=== PATIENT | female | born 1965 | race Caucasian/White ===

== ENCOUNTER → 2020-04-05 | Day surgery (SDC) | payer OTHER, MEDICARE ==
--- NOTE | 2020-04-01 13:29 | Diagnostic Imaging Report ---
EXAMINATION: CHEST 2 VIEWS INDICATION: Preop for surgery ^[id number] ^[id number] ^PRE-OP COMPARISON: None FINDINGS: TUBES and LINES: None. LUNGS: Lungs are well inflated. Lungs are clear. There is no evidence of pneumonia or pulmonary edema. PLEURA: No pleural effusion or pneumothorax. HEART AND MEDIASTINUM: The cardiomediastinal silhouette is unremarkable. BONES AND SOFT TISSUES: No acute osseous lesion. Soft tissues are unremarkable. UPPER ABDOMEN: No free air under the diaphragm. IMPRESSION: No acute thoracic abnormality. Signed by: Dr. Bruce Gilmore M.D. on 04/01/2020 1:25 PM
--- NOTE | 2020-04-04 12:13 | Pre Op History & Physical ---
DATE OF SURGERY: 04/05/2020. CHIEF COMPLAINT: Lesion in the right forehead and hairline. HISTORY OF PRESENT ILLNESS: This 55-year-old female has a lesion inside the right-sided hairline and forehead for many years. The patient had a biopsy and culture of the area by Dr. Terrazas. The lesion persisted. The biopsy did not come back as malignant. The lesion did not go away. REVIEW OF SYSTEMS: System review showed no recent cardiovascular, respiratory, or GI problem. PAST MEDICAL HISTORY: The patient has type 2 diabetes, hypertension, and atrial fibrillation. PAST SURGICAL HISTORY: The patient has hysterectomy, tonsillectomy, cholecystectomy, cervical spine surgery, and shoulder surgery. ALLERGIES: SHE IS ALLERGIC TO PENICILLIN AND SULFA. MEDICATIONS: She is on spironolactone, metformin, Cymbalta, Lyrica, tramadol, pantoprazole, , aspirin, tizanidine, and atorvastatin. SOCIAL HISTORY: She is a nonsmoker and nondrinker. FAMILY HISTORY: Noncontributory. PHYSICAL EXAMINATION: VITAL SIGNS: The patient's vital signs were within normal limits. HEENT: Ear exam showed normal tympanic membrane bilaterally. Nasal exam showed no obvious abnormality. Oropharynx and oral cavity showed no obvious abnormality. MUSCULOSKELETAL: The patient has right-sided lesion in the hairline in the forehead about 0.5 cm, which is tender to palpation, ulcerated in appearance. NECK: No lymph node or thyroid palpable. CHEST: Good air entry bilaterally. CARDIOVASCULAR: S1, S2. No murmur noted. ASSESSMENT AND PLAN: Mrs. Roman has lesion in the right hairline which is resistant to healing. 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 The suggested treatment is excision of lesion with appropriate closure and other necessary procedure. Complication of procedure includes, but not limited to bleeding, infection, wound breakdown, poor cosmetic result, hair loss, and persistent recurrence of the lesion. Alternatives will be continue observation, excision of lesion in the office setting, continue antibiotic therapy, and topical therapy. The patient has been advised to stop her aspirin at least 7 to 10 days before surgery. The patient has elected to undergo surgical procedure. Brian Calvin MD [facility] /[id number] cc: MD Trae Coppola MD
[~2020-04-05] MED LIST: ASPIRIN81 MG PO; ATORVASTATIN CA20 MG PO; BUMEX PO; CYMBALTA30 MG PO; DEXAMETHASONE SOD PHOS INJ 4 MG/ML VIAL ONE; KETOROLAC TROMETHAMINE 30 MG/ML VIAL ONE; LIDOCAINE 1% W/EPINEPHRINE 20 ML VIAL ONE; LIDOCAINE HCL 2% LOCAL INJ 5 ML SDV VIAL INJ ONE; LYRICA150 MG PO; METFORMIN HCL500 MG PO; METFORMIN HCL850 MG PO; MIDAZOLAM HCL 2 MG/2 ML VIAL ONE; NEOSTIGMINE 1 MG/ML 10ML VIAL ONE; ONDANSETRON HCL INJ 2MG/ML 2ML 2 MG/ML VIAL ONE; PREVACID30 MG PO; PROPOFOL IV EMULSION 10 MG/ML 20 ML VIAL ONE; PROPRANOLOL HCL80 MG PO; SEVOFLURANE INHAL SOLN 250 ML PEN BTL ONE; SPIRONOLACTONE25 MG PO; TIZANIDINE HCL4 MG PO; ULTRAM50 MG PO
--- NOTE | 2020-04-05 07:15 | NUR ---
SPIRITUAL CARE - Pre-Surgery Assessment: Pt in bed. Pt's at bedside. Pt reported supportive attention from family and friends. Intervention: Garden Worker provided pastoral presence, hospitality, and sympathetic listening. Acquainted pt with availability of hydraulic rubbish compactor mechanic while hospitalized. Outcome: Pt expressed appreciation for visit. No need for follow up indicated at this time. [facility] O: [phone]
--- NOTE | 2020-04-05 09:35 | Operative Report ---
DATE OF PROCEDURE: SURGEON: Brian Calvin MD CHIEF COMPLAINT: Lesion in the right forehead in the hairline. POSTOPERATIVE DIAGNOSES: 1. Lesion in the right forehead in the hairline. 2. Squamous cell carcinoma of the forehead. OPERATIVE PROCEDURE: Excision of squamous cell carcinoma of the forehead with appropriate closure. Size of the defect with 3 x 2 cm with frozen section control. INDICATIONS: This 55-year-old female has a lesion in the forehead inside the hairline for number of years. She has been followed by her potash flaker with no improvement of the condition. The area would not heal. She had culture and biopsy apparently did not show anything malignant. On examination, she was noted to have a 0.5 cm lesion inside the hairline on the right side of the forehead. It was decided that excision of lesion with frozen section control and appropriate closure and other necessary procedure will be beneficial for her. DESCRIPTION OF PROCEDURE: The patient was taken to the operating room, put under general anesthesia. LMA airway created. The forehead was prepped and draped in a sterile fashion. The area was injected with 1% Xylocaine with 1:100,000 epinephrine for hemostasis. The area was marked out inside the hairline. Initial excision was close to the lesion and sent for frozen section. The frozen section returned with the lesion being a squamous cell carcinoma with the one of the margin being involved. Re-excision of the lesion was undertaken. Another half a cm of margin was taken all around the initial margin and this was marked and sent for frozen section again. The reexcised margin returned as margins being free of cancer. Culture of the area was undertaken. The area was irrigated with copious amount of normal saline. Any bleeding area was controlled using the cautery. The medial and lateral flaps were elevated in the subgaleal plane. This was advanced and closed using interrupted 3-0 Ethilon suture without any problem. Triamcinolone ointment was inserted onto the wound. The patient tolerated the above procedure well with estimated blood loss about 5 mL. She was given 20 mg of Decadron intraoperatively. The patient was able to be transferred to recovery room in stable condition. Brian Calvin MD [facility] :04:28 /[id number]
[2020-04-05 11:00] VITALS: BP 113/64
== END | disposition home or self-care (01) ==
LOC: OR 06:13
PROVIDERS: ATTEND Otolaryngology Otolaryngology/Facial Plastic Surgery
DX: C44.329 Squamous cell carcinoma of skin of other parts of face (principal); C44.319 Basal cell carcinoma of skin of other parts of face; L57.0 Actinic keratosis; I11.0 Hypertensive heart disease with heart failure; I50.9 Heart failure, unspecified; I48.91 Unspecified atrial fibrillation; E78.5 Hyperlipidemia, unspecified; I25.10 Atherosclerotic heart disease of native coronary artery without angina pectoris; E11.9 Type 2 diabetes mellitus without complications; K21.9 Gastro-esophageal reflux disease without esophagitis; Z88.0 Allergy status to penicillin; Z01.810 Encounter for preprocedural cardiovascular examination; Z01.812 Encounter for preprocedural laboratory examination; Z01.818 Encounter for other preprocedural examination; Z11.59 Encounter for screening for other viral diseases; Z79.82 Long term (current) use of aspirin; Z79.84 Long term (current) use of oral hypoglycemic drugs
CPT/HCPCS: 14040; 36415; 71046; 82948; 88307; 88331; 88332; 93005; J1100; J1885; J2001; J2250; J2405; J2704; J2710; U0002; 88305